=== PATIENT | female | born 1980 | race Hispanic/Latino ===

== ENCOUNTER 2023-06-02 04:25 | Observation (INO) | payer OTHER, SELFPAY ==
[2023-06-02 06:43] VITALS: BMI 25.8
[2023-06-02] MEDS ORDERED: Morphine 2 MG/ML VIAL SLOW IVP SCH (11:45)
[2023-06-02] MEDS ORDERED: FLU VACC QS2023-24(6MOS UP)/PF 60 MCG/0.5 ML SYRINGE IM ONE (19:00)
[2023-06-03] MEDS ORDERED: traMADol HCl 50 MG TAB PO PRN (01:16)
[2023-06-03 08:54] VITALS: BP 93/58; TEMP 98.8
== END 2023-06-03 11:10 | disposition home or self-care (01) ==
LOC: SURG B 04:25
PROVIDERS: ADMIT Surgery; ATTEND Surgery
DX: K56.50 Intestinal adhesions [bands], unspecified as to partial versus complete obstruction (principal)
CPT/HCPCS: G0378; J2272